=== PATIENT | female | born 1960 | race Caucasian/White ===

== ENCOUNTER 2016-11-14 15:44 | Emergency (ER) | payer OTHER ==
[~2016-11-14] VITALS: Ht 165.1 cm; Wt 92.1 kg
[~2016-11-14 15:44] MED LIST: ALPR1TAB3 PO; CYM60 PO; FLNIN NAE; LEVAAER2 INH; OMEP40CA PO; OXYC1CAP5 PO; QUET1TAB37 PO; TRAZ100T29 PO
[2016-11-14 15:53] VITALS: TEMP 36.7; Ht 165.1 cm; Wt 92.1 kg
[2016-11-14] MEDS ORDERED: PROCHLORPERAZINE 5 MG/ML 2 ML VIAL IM STA (16:06)
[2016-11-14] MEDS ORDERED: DiphenhydrAMINE HCL 50 MG/ML VIAL IM STA (16:06)
[2016-11-14] MEDS ORDERED: KETOROLAC TROMETHAMINE 60 MG/2 ML VIAL IM STA (16:06)
[2016-11-14 16:51] LABS: MANUAL MICROSCOPIC REQUIRED? YES; REVIEW REQ? NO; SULFASALICYLIC ACID NEG (NEG); URINE APPEARANCE SLIGHTLY CLOUDY (CLEAR); URINE COLOR ORANGE; URINE SPECIFIC GRAVITY 1.017 (1.000-1.030)
[2016-11-14] MEDS ORDERED: HYDROmorphone INJ 1 MG/ML SYR IM STA (16:59)
[2016-11-14 17:03] LABS: URINE BACTERIA 1+ (NEG); URINE RBC 0-4 /hpf (0-4)
[2016-11-14 17:04] LABS: ZZUR CULT IF INDIC CLEAN CATCH YES
--- NOTE | 2016-11-14 17:05 | EMERGENCY ROOM VISIT NOTE ---
History First contact with patient: 15:56 Chief Complaint: HEADACHE Stated Complaint: HEADACHE,UTI History of Present Illness The patient is a 56 year old female who presents to the Emergency Room with complaints of a migraine headache and urinary symptoms. The patient states that she has had a migraine headache for the past 5 days. She does have a history of migraines and states this feels typical for her. She reports photosensitivity, nausea and vomiting. She states that the only thing that makes this headache different is that it has not gone away yet. She rates her discomfort a 9/10. She has taken Maxalt and oxycodone for pain. She follows with Dr. Olea locally. She denies any numbness, weakness, blurred vision, slurred speech or confusion. The patient also reports that she has had increased frequency of urination over the past few days. She feels like she is not fully emptying her bladder. She reports a feeling of fullness in her lower abdomen. She is taking Azo at home for her symptoms. She denies any fevers/ chills or back pain. Review of Systems A complete 10 point review of systems was reviewed with the patient with pertinent positives and negatives as per history of present illness. All else were negative. Past Medical/Surgical History Medical Problems: (1) Depression (2) Gallstones (3) Hiatal hernia (4) Migraines Social History Smoking Status: Never Smoker Alcohol Use: none Drug Use: none Marital Status: Occupation Status: disabled Current/Historical Medications Scheduled Albuterol Hfa (Ventolin Hfa), 1-2 PUFFS INH UD Alprazolam (Xanax), 1 MG PO TID Ciprofloxacin Hcl (Cipro), 500 MG PO BID Duloxetine HCl (Duloxetine HCl), 60 MG PO DAILY Duloxetine HCl (Duloxetine HCl), 30 MG PO DAILY Fluticasone Propionate (Fluticasone Propionate), 2 SPRAYS SHIV DAILY Montelukast Sod (Montelukast Sodium), 1 TAB PO DAILY Quetiapine Fumarate (Seroquel), 900 MG PO HS Ranitidine HCl (Ranitidine HCl), 150 MG PO BID Rizatriptan Benzoate (Rizatriptan Benzoate), 1 TAB PO UD Trazodone Hcl (Trazodone), 100 MG PO HS Scheduled PRN Oxycodone Hcl (Oxycodone Hcl), 1-2 TABS PO Q8 PRN for Pain Allergies Coded Allergies: Cefaclor (Verified Allergy, Mild, 11/14/16) Cephalosporins (Verified Allergy, Mild, 11/14/16) Sulfa Drugs (Verified Allergy, Unknown, RASH, 11/14/16) Physical Exam Vital Signs Date Time Temp Pulse Resp B/P (MAP) Pulse Ox O2 Delivery O2 Flow Rate FiO2 11/14/16 18:55 89 18 152/85 93 11/14/16 17:27 82 16 130/87 94 11/14/16 15:53 36.7 92 16 118/82 95 Room Air Physical Exam VITALS: Vitals are noted on the nurse's note and reviewed by myself. Vital signs stable. GENERAL: This is a 56-year-old female, in no acute distress, nondiaphoretic, well-developed well-nourished. EARS: External auditory canals clear, tympanic membranes pearly pruett without erythema or effusion bilaterally. EYES: Pupils equal round and reactive to light and accommodation. Conjunctivae without injection, sclerae without icterus. Extraocular movements intact. MOUTH: Mucous membranes moist. NECK: Supple without nuchal rigidity. No lymphadenopathy. No meningismus. HEART: Regular rate and rhythm without murmurs gallops or rubs. LUNGS: Clear to auscultation bilaterally without wheezes, rales or rhonchi. ABDOMEN: Positive bowel sounds x 4. Soft, no tenderness to palpation. MUSCULOSKELETAL: No CVA tenderness. Strength 5/5 in all extremities. NEURO: Patient was alert and oriented to person place and time. Normal sensation to light and sharp touch. No focal neurological deficits. Medical Decision & Procedures Laboratory Results Test 11/14/16 16:25 Urine Color ORANGE Urine Appearance SLIGHTLY CLOUDY (CLEAR) Urine pH (4.5-7.5) Urine Specific [place] 1.017 (1.000-1.030) Urine Protein (NEG) Urine Glucose (UA) (NEG) Urine Ketones (NEG) Urine Occult Blood (NEG) Urine Nitrite (NEG) Urine Bilirubin (NEG) Urine Urobilinogen (NEG) Urine Leukocyte Esterase (NEG) Urine RBC 0-4 /hpf (0-4) Urine WBC 10-30 /hpf (0-5) Urine Epithelial Cells >30 /lpf (0-5) Urine Renal Cells 5-10 /lpf (FEW) Urine Bacteria 1+ (NEG) Medications Administered Medications (Trade) Dose Ordered Sig/Amilcar Route Start Time Stop Time Status Last Admin Dose Admin Ketorolac Tromethamine (Toradol Inj) 60 mg NOW STAT IM 11/14/16 16:06 11/14/16 16:09 DC 11/14/16 16:29 60 MG Prochlorperazine Edisylate (Compazine Inj) 10 mg NOW STAT IM 11/14/16 16:06 11/14/16 16:09 DC 11/14/16 16:28 10 MG Diphenhydramine HCl (Benadryl Inj) 25 mg NOW STAT IM 11/14/16 16:06 11/14/16 16:09 DC 11/14/16 16:27 25 MG Hydromorphone HCl (Dilaudid Inj) 1 mg NOW STAT IM 11/14/16 16:59 11/14/16 17:01 DC 11/14/16 17:29 1 MG Ciprofloxacin (Cipro Tab) 500 mg NOW STAT PO 11/14/16 18:05 11/14/16 18:08 DC 11/14/16 18:53 500 MG Al Hydroxide/Mg Hydroxide (Maalox Susp) 30 ml STK-MED ONCE .ROUTE 11/14/16 18:13 11/14/16 18:14 DC 11/14/16 18:53 30 ML Lidocaine HCl (Viscous Lidocaine 2% Soln) 20 ml STK-MED ONCE .ROUTE 11/14/16 18:13 11/14/16 18:14 DC 11/14/16 18:53 20 ML ED Course The patient was evaluated as above. Patient was medicated with 60 mg Toradol IM, 10 mg Compazine IM and 25 mg Benadryl IM. Patient was reevaluated and reported some relief, but still had a headache which she rated a 6/10. One mg of Dilaudid was ordered. Patient was reevaluated and felt much better. She does report she is having some reflux. A GI cocktail was ordered. Discharge instructions were reviewed with the patient. The patient verbalized understanding of my assessment and treatment plan and was discharged home in good condition. Medical Decision The differential diagnosis includes UTI, pyelonephritis, acute intracranial bleed, meningitis, encephalitis, mass or mass effect, sinusitis, infection, tumor, headache, temporal arteritis and carbon monoxide exposure, and migraine. The patient is a 56-year-old female who presents today complaining of a migraine headache which is typical for her as well as symptoms of UTI. Headache resolved with the above treatment. Urinalysis was suggestive of infection versus contamination and will be sent for culture. The patient will be placed on antibiotic in the meantime. She was instructed to follow-up with her primary care provider regarding today's visit. Based on the patient's presentation and work up, I feel the patient is stable for outpatient treatment. The patient was educated to return to the emergency department for any worsening of their current condition or new/concerning symptoms. She will follow up with her PCP. Medication reconciliation: I attest that I have personally reviewed the patient 's current medication list. Blood Pressure Screening: Patient was found to have a slightly elevated blood pressure due to circumstances. I do not believe that the patient requires hypertension monitoring. Impression Primary Impression: Headache Additional Impression: Symptoms involving urinary system Departure Information Dispostion Home / Self-Care Condition GOOD Prescriptions Ciprofloxacin Hcl (CIPRO) 500 Mg Tab 500 MG PO BID for 5 Days, #10 TAB Prov: Ruma Rya .NINO 11/14/16 Referrals Nanette Ortiz D.O. (PCP) Patient Instructions My [facility] Additional Instructions You have been treated in the Emergency Department for a Urinary Tract Infection (UTI) and migraine. You were given medications in the emergency department which impairs your ability to drive. You have been prescribed Cipro to be taken twice daily for 5 days. This is an antibiotic. All antibiotics have the potential to cause diarrhea. Stop this medication and contact a medical provider if you were to develop any significant adverse side effects including: wheezing, shortness of breath, passing out, vomiting, or a diffuse rash. Always take antibiotics as directed and COMPLETE the ENTIRE course regardless of the improvement of your symptoms. Drink plenty of water and stay well hydrated. As with any trip to the Emergency Department, you should follow-up with your Primary Care Provider from today's visit. Return to the emergency department if your symptoms persist despite treatment plan outlined above or if the following symptoms occur: increased fevers, chills , low back pain, nausea/vomiting, or blood in your urine. Problem Qualifiers Primary Impression: Headache Headache type: unspecified Headache chronicity pattern: acute headache Intractability: not intractable Qualified Codes: R51 - Headache
[2016-11-14] MEDS ORDERED: RANI150T2 PO (17:25)
[2016-11-14] MEDS ORDERED: SNG10 PO (17:25)
[2016-11-14] MEDS ORDERED: RIZA1TAB11 PO (17:25)
[2016-11-14] MEDS ORDERED: VNTHFA/IN INH (17:25)
[2016-11-14] MEDS ORDERED: FLNIN/ NAE (17:25)
[2016-11-14] MEDS ORDERED: CYM30 PO (17:25)
[2016-11-14] MEDS ORDERED: CYM60 PO (17:25)
[2016-11-14] MEDS ORDERED: CIPROFLOXACIN 500 MG TAB PO STA (18:05)
[2016-11-14] MEDS ORDERED: GI COCKTAIL PO STA (18:05)
[2016-11-14] MEDS ORDERED: CIPR-255 PO (18:10)
[2016-11-14] MEDS ORDERED: ALUMINUM/MAGNESIUM SUSP 30 ML UDC ONE (18:13)
[2016-11-14] MEDS ORDERED: LIDOCAINE HCL 2% VISC SOLN 20 ML UDC ONE (18:13)
[2016-11-14 18:55] VITALS: BP 152/85; PULSE 89; O2SAT 93
--- NOTE | 2016-11-14 19:20 | Pharmacy Progress Note ---
ED Pharmacist Progress Note Date of Service: Nov 14, 2016. Laura called from [facility] to alert us that the patient is taking Duloxetine and there is a significant interaction with the Cipro that was prescribed. I asked the pharmacist is Levofloxacin would be a reasonable alternative w/o risk of interaction. She stated this would be safer. I confirmed this as well. I discussed this with Ruma who agreed to the change. I called the Rx for Levofloxacin 500mg daily x 5 days to [facility] ([phone])
[2017-01-27] MEDS ORDERED: VNTHFA/IN INH (08:27)
[2017-01-27] MEDS ORDERED: PROM25TA9 PO (08:27)
[2017-01-27] MEDS ORDERED: BND25 PO (08:27)
== END 2016-11-14 18:55 | disposition home or self-care (01) ==
LOC: C.EDB 15:44
DX: R51 Headache (principal); R39.9 Unspecified symptoms and signs involving the genitourinary system; F32.9 Major depressive disorder, single episode, unspecified

== ENCOUNTER 2024-12-30 06:05 | Inpatient (IN) ==
[2024-12-30 06:54] LABS: Hematocrit (blood only) 35.4 % (37.0-47.0); Hemoglobin 11.4 g/dl (12.0-16.0); Immature Granulocytes # (auto) 0.03 K/uL (0.01-0.20); Immature Granulocytes % (auto) 0.3 %; Mean Corpuscular Hemoglobin 28.8 pg (25.0-34.0); Mean Corpuscular Volume 89.4 fL (80.0-100.0); Platelet Count 199 K/uL (130-400); RDW Standard Deviation 48.5 fL (36.4-46.3); Red Blood Count 3.96 M/uL (4.20-5.40); White Blood Count 9.96 K/ul (4.8-10.8)
--- NOTE | 2024-12-30 07:00 | Emergency Department Note ---
Impression & Plan AMS (altered mental status), Abnormal chest x-ray, Pneumonia ED Provider Note NAME: BURAK GONZALEZ AGE: 64 SEX: F : 1960 ARRIVES VIA: Ambulance INFORMANT: Patient, ED PROVIDER(S): Yanni Lockwood MD CHIEF COMPLAINT: Confusion HPI: This is a 64-year-old female presenting for confusion. Patient was reported found by the side of the road next to her truck. There was 2 dogs inside the vehicle. Patient was found facedown. Patient was mumbling and difficult to answer questions. Patient currently answers questions with I do not know ". She is not unsure what happened. She does state she has some pain to her knees. Otherwise she reports headache. She is not sure how long this has been going on. ROS: Unable to obtain PHYSICAL EXAMINATION: General: resting comfortably in no acute distress Head: Normocephalic and atraumatic Eyes: Normal inspection, extraocular muscles intact Ear, nose, throat: Normal external exam Neck: Normal range of motion Respiratory: lungs clear to auscultation bilaterally Cardiovascular: Regular rate/rhythm, no murmur GI: soft, nontender, no guarding or rebound Extremities: moves all extremities, bilateral knee abrasions Neuro: Awake, alert, not oriented, moves all extremities and follows commands, no facial droop or motor drift Skin: Warm, dry, and intact MEDICAL DECISION MAKING: This is a 64-year-old female presenting for confusion. No clear strokelike process with a nonfocal neurologic exam at this time. She does appear significantly altered at this time. Will do basic blood work, urinalysis, UDS, ingestion labs, chest x-ray and head CT. - Labs reviewed showing no leukocytosis. Hemoglobin 11.4. VBG is 7.35/61. Slight changes in electrolytes, otherwise no significant anion gap. Lactic acid still elevated above 2. Urinalysis negative for UTI. Urinalysis positive for opiates and MDMA. -CT head without significant process -Chest x-ray does not reveal signs of consolidation as well as congestion. -Will treat as pneumonia empirically - Family to state the patient is on multiple different psychiatric medication as his bipolar. Will ask them to get medication bottles to ensure no sign of overdose -Will get the patient at this time to hospital service. Discussed with Margarette nation NP for [facility] Differential diagnosis: Stroke, intoxication, alcohol use, metabolic encephalopathy, UTI, sepsis, intracranial hemorrhage Independent History obtained from: Son, daughter Diagnostics interpreted by me: ECG: ECG independently interpreted by me with normal sinus rhythm, rate of 93, normal axis, normal [place], normal QRS, normal QTc, no ST segment elevations consistent with STEMI criteria Cardiac Monitoring: An order was placed for continuous cardiac monitoring. The monitor shows a rate of 88 with sinus rhythm. Past Med/Surg History Problem List (Updated 12/30/24 @ 14:31 by Yanni Lockwood MD) Anemia Abnormal chest x-ray (Acute) AMS (altered mental status) (Acute) Headache (Acute) Chronic abdominal pain (Acute) Hiatal hernia (Chronic) Migraines (Chronic) Depression (Chronic) Gallstones (Chronic) Pneumonia (Acute) Symptoms involving urinary system (Acute) Surgical History No significant past surgical history Social History Smoking Status: Unknown if ever smoked Hx Alcohol Use: No Hx Substance Use: No Preferred Language: [place] [employer] Required: No Current Living Situation: Alone Feels Safe at Home: Yes Safety Concerns: Feels Safe At This Time Assistive Devices: Walker Allergies Allergies Allergy/AdvReac Type Severity Reaction Status Date / Time cefaclor Allergy Mild Verified 12/22/19 14:47 Cephalosporins Allergy Mild Verified 12/22/19 14:47 Sulfa (Sulfonamide Allergy Unknown RASH Verified 12/22/19 14:47 Antibiotics) Home Meds Home Medications Medication Instructions Recorded Confirmed alprazolam 1 mg tablet 1 mg PO BID PRN Anxiety 12/22/19 12/30/24 fluticasone furoate 200 1 inh inhalation QAM 12/22/19 12/30/24 mcg-vilanterol 25 mcg/dose inhalation powder (Breo Ellipta) fluticasone propionate 50 1 spray intranasal DAILY PRN 12/22/19 12/30/24 mcg/actuation nasal Congestion spray,suspension hydroxyzine HCl 50 mg tablet 50 mg PO BID PRN Itching 12/22/19 12/30/24 oxycodone 5 mg tablet 5 mg PO Q4H PRN Pain 12/22/19 12/30/24 pantoprazole 40 mg tablet,delayed 40 mg PO QAM 12/22/19 12/30/24 release sucralfate 1 gram tablet 1 g PO QID 12/22/19 12/30/24 trazodone 100 mg tablet 100 mg PO HS 12/22/19 12/30/24 paroxetine HCl 20 mg tablet 20 mg PO DAILY 12/30/24 12/30/24 quetiapine 300 mg tablet 600 mg PO HS 12/30/24 12/30/24 rimegepant 75 mg disintegrating 75 mg PO .Q OTHER DAY 12/30/24 12/30/24 tablet (Nurtec ODT) Results & Data (ED) Vital Signs Vital Signs - 24 hr 12/30/24 06:09 12/30/24 06:14 12/30/24 06:37 Temperature 35 C L Temperature Source Rectal Pulse Rate 90 91 H Pulse Rate [Apical] Respiratory Rate 20 Respiratory Effort / Characteristics Non-Labored Spontaneous Respiratory Depth Normal Respiratory Pattern Regular Blood Pressure 133/81 Blood Pressure [Left Arm] Blood Pressure Mean 98 Blood Pressure Mean [Left Arm] Blood Pressure Position Lying Pulse Oximetry 96 94 Oxygen Delivery Method Room Air Room Air Sepsis Recent Fever Within 48 Hours No Sepsis New/Unexplained Change in Mental Status N/A Sepsis Action Taken by Nursing No Action Required 12/30/24 06:42 12/30/24 07:39 12/30/24 09:00 Temperature 35.4 C L 35.9 C L Temperature Source Byrd Cath ( Temp Sensing) Byrd Cath ( Temp Sensing) Pulse Rate Pulse Rate [Apical] 90 89 95 H Respiratory Rate 19 18 18 Respiratory Effort / Characteristics Non-Labored Spontaneous Non-Labored Spontaneous Respiratory Depth Normal Normal Respiratory Pattern Regular Regular Blood Pressure Blood Pressure [Left Arm] 145/91 H 122/73 Blood Pressure Mean Blood Pressure Mean [Left Arm] 109 89 Blood Pressure Position Pulse Oximetry 95 96 98 Oxygen Delivery Method Room Air Room Air Room Air Sepsis Recent Fever Within 48 Hours Sepsis New/Unexplained Change in Mental Status Sepsis Action Taken by Nursing 12/30/24 10:00 Temperature 36.3 C L Temperature Source Byrd Cath ( Temp Sensing) Pulse Rate Pulse Rate [Apical] 85 Respiratory Rate 18 Respiratory Effort / Characteristics Non-Labored Spontaneous Respiratory Depth Normal Respiratory Pattern Regular Blood Pressure Blood Pressure [Left Arm] 116/76 Blood Pressure Mean Blood Pressure Mean [Left Arm] 89 Blood Pressure Position Pulse Oximetry 97 Oxygen Delivery Method Room Air Sepsis Recent Fever Within 48 Hours Sepsis New/Unexplained Change in Mental Status Sepsis Action Taken by Nursing Laboratory Data 12/30/24 06:29 12/30/24 06:29 Lab Results 12/30/24 12/30/24 12/30/24 Range/Units 06:29 06:37 06:43 WBC 9.96 (4.8-10.8) K/ul RBC 3.96 L (4.20-5.40) M/uL Hgb 11.4 L (12.0-16.0) g/dl POC Hgb 12.9 (12.0-16.0) g/dl Hct 35.4 L (37.0-47.0) % POC Hct 38 (37-47) % MCV 89.4 (80.0-100.0) fL MCH 28.8 (25.0-34.0) pg MCHC 32.2 (32.0-36.0) g/dL RDW Std Deviation 48.5 H (36.4-46.3) fL RDW Coeff of Annalee 14.8 H (11.5-14.5) % Plt Count 199 (130-400) K/uL MPV 10.6 (9.4-12.4) fL Immature Gran % (Auto) 0.3 % Neut % (Auto) 87.3 % Lymph % (Auto) 8.3 % [place] % (Auto) 3.8 % Eos % (Auto) 0.1 % Baso % (Auto) 0.2 % Neut # (Auto) 8.69 H (1.40-6.50) K/uL Lymph # (Auto) 0.83 L (1.20-3.40) K/uL [place] # (Auto) 0.38 (0.11-0.59) K/uL Eos # (Auto) 0.01 (0.00-0.50) K/uL Baso # (Auto) 0.02 (0.00-0.20) K/uL Immature Gran # (Auto) 0.03 (0.01-0.20) K/uL VBG pH (7.36-7.41) VBG pCO2 (38-50) mmHg VBG pO2 mmHg VBG HCO3 mmol/L VBG O2 Saturation % VBG Base Excess mEq/L POC Sodium 133 L (135-144) mmol/L Sodium 134 L (136-145) mmol/L POC Potassium 3.2 L (3.3-5.0) mmol/L Potassium 3.2 L (3.5-5.1) mmol/L POC Chloride 94 L (101-112) mmol/L Chloride 95 L (98-107) mmol/L Carbon Dioxide 30 (21-32) mmol/L POC Total CO2 28 (24-31) mmol/L Anion Gap 9 (3-11) POC Anion Gap 16.0 (16-25) mmol/L POC BUN 6 L (7-18) mg/dl BUN 8 (6-23) mg/dl Creatinine 1.10 (0.6-1.2) mg/dl POC Creatinine 1.1 (0.6-1.3) mg/dl Est Cr Clr Drug Dosing Not Reportable eGFR 56.46 BUN/Creatinine Ratio 7.3 L (10-20) Glucose 147 H (70-99(Fasting)) mg/dl POC Glucose (other) 149 H (70-99) mg/dl Lactate (0.4-2.0) mmol/L Calcium 9.2 (8.6-10.3) mg/dl POC Ioniz Calcium Bart 1.18 (1.12-1.32) mmol/l Total Bilirubin 0.4 (0.2-1.0) mg/dl AST 21 (13-39) U/L ALT 21 (7-52) U/L Alkaline Phosphatase 85 (34-104) U/L Total Protein 6.7 (6.0-8.3) gm/dl Albumin 4.1 (3.4-5.0) gm/dl Globulin 2.6 (2.5-4.0) gm/dl Albumin/Globulin Ratio 1.6 (0.9-2) TSH 4.834 H (0.300-4.500) uIu/ml Free T4 0.59 L (0.61-1.60) ng/dl Urine Color Yellow Urine Appearance Clear (Clear) Urine pH 5.5 (4.5-7.5) Ur Specific [place] 1.016 (1.000-1.030) Urine Protein Trace H (Negative) Urine Glucose (UA) Negative (Negative) Urine Ketones Negative (Negative) Urine Blood Negative (Negative) Urine Nitrite Negative (Negative) Urine Bilirubin Negative (Negative) Urine Urobilinogen Negative (Negative) Ur Leukocyte Esterase Negative (Negative) Urine WBC (Auto) 0-5 (0-5) /hpf Urine RBC (Auto) 0-2 (0-2) /hpf U Hyaline Cast (Auto) 0-2 (0-2) /lpf U Epithel Cells (Auto) 0-2 (0-2) /hpf Urine Bacteria (Auto) None Seen (None Seen) Urine Mucus Present A (None Prsent) Urine Comment Salicylates < 3.0 L (3.0-30) mg/dl Urine Opiates Screen Pos H (Neg) Ur Methadone, Qual Neg (Neg) Urine Fentanyl Screen Neg (Neg) Acetaminophen < 3 L (10-30) ug/ml Urine Barbiturates Neg (Neg) Ur Phencyclidine (PCP) Neg (Neg) U Amphetamin/Meth Scrn Neg (Neg) MDMA (Ecstasy) Screen Pos H (Neg) U Benzodiazepines Scrn Neg (Neg) Ur Cocaine Metabolite Neg (Neg) U Marijuana (THC) Screen Neg (Neg) Ethyl Alcohol mg/dL (<10.0) mg/dl 12/30/24 12/30/24 Range/Units 07:12 09:00 WBC (4.8-10.8) K/ul RBC (4.20-5.40) M/uL Hgb (12.0-16.0) g/dl POC Hgb (12.0-16.0) g/dl Hct (37.0-47.0) % POC Hct (37-47) % MCV (80.0-100.0) fL MCH (25.0-34.0) pg MCHC (32.0-36.0) g/dL RDW Std Deviation (36.4-46.3) fL RDW Coeff of Annalee (11.5-14.5) % Plt Count (130-400) K/uL MPV (9.4-12.4) fL Immature Gran % (Auto) % Neut % (Auto) % Lymph % (Auto) % [place] % (Auto) % Eos % (Auto) % Baso % (Auto) % Neut # (Auto) (1.40-6.50) K/uL Lymph # (Auto) (1.20-3.40) K/uL [place] # (Auto) (0.11-0.59) K/uL Eos # (Auto) (0.00-0.50) K/uL Baso # (Auto) (0.00-0.20) K/uL Immature Gran # (Auto) (0.01-0.20) K/uL VBG pH 7.35 L (7.36-7.41) VBG pCO2 61 H (38-50) mmHg VBG pO2 30 mmHg VBG HCO3 34 mmol/L VBG O2 Saturation < 60.0 % VBG Base Excess 6.3 mEq/L POC Sodium (135-144) mmol/L Sodium (136-145) mmol/L POC Potassium (3.3-5.0) mmol/L Potassium (3.5-5.1) mmol/L POC Chloride (101-112) mmol/L Chloride (98-107) mmol/L Carbon Dioxide (21-32) mmol/L POC Total CO2 (24-31) mmol/L Anion Gap (3-11) POC Anion Gap (16-25) mmol/L POC BUN (7-18) mg/dl BUN (6-23) mg/dl Creatinine (0.6-1.2) mg/dl POC Creatinine (0.6-1.3) mg/dl Est Cr Clr Drug Dosing eGFR BUN/Creatinine Ratio (10-20) Glucose (70-99(Fasting)) mg/dl POC Glucose (other) (70-99) mg/dl Lactate 2.5 H* 2.1 H* (0.4-2.0) mmol/L Calcium (8.6-10.3) mg/dl POC Ioniz Calcium Bart (1.12-1.32) mmol/l Total Bilirubin (0.2-1.0) mg/dl AST (13-39) U/L ALT (7-52) U/L Alkaline Phosphatase (34-104) U/L Total Protein (6.0-8.3) gm/dl Albumin (3.4-5.0) gm/dl Globulin (2.5-4.0) gm/dl Albumin/Globulin Ratio (0.9-2) TSH (0.300-4.500) uIu/ml Free T4 (0.61-1.60) ng/dl Urine Color Urine Appearance (Clear) Urine pH (4.5-7.5) Ur Specific [place] (1.000-1.030) Urine Protein (Negative) Urine Glucose (UA) (Negative) Urine Ketones (Negative) Urine Blood (Negative) Urine Nitrite (Negative) Urine Bilirubin (Negative) Urine Urobilinogen (Negative) Ur Leukocyte Esterase (Negative) Urine WBC (Auto) (0-5) /hpf Urine RBC (Auto) (0-2) /hpf U Hyaline Cast (Auto) (0-2) /lpf U Epithel Cells (Auto) (0-2) /hpf Urine Bacteria (Auto) (None Seen) Urine Mucus (None Prsent) Urine Comment Salicylates (3.0-30) mg/dl Urine Opiates Screen (Neg) Ur Methadone, Qual (Neg) Urine Fentanyl Screen (Neg) Acetaminophen (10-30) ug/ml Urine Barbiturates (Neg) Ur Phencyclidine (PCP) (Neg) U Amphetamin/Meth Scrn (Neg) MDMA (Ecstasy) Screen (Neg) U Benzodiazepines Scrn (Neg) Ur Cocaine Metabolite (Neg) U Marijuana (THC) Screen (Neg) Ethyl Alcohol mg/dL < 10.0 (<10.0) mg/dl Administered Medications Fluticasone/Vilanterol (Fluticasone/Vilanterol 200/25mcg 14 Puffs/Inhaler) 1 puffs INH QAM MARJAN Stop: 01/29/25 13:29 Last Admin: 12/30/24 14:21 Dose: 1 puffs Documented By: TLDamon Pantoprazole Sodium (Pantoprazole 40 Mg Tab) 40 mg PO QAM [facility] Stop: 01/29/25 13:29 Last Admin: 12/30/24 14:21 Dose: 40 mg Documented By: TLM Paroxetine HCl (Paroxetine Hcl 20 Mg Tab) 20 mg PO DAILY [facility] Stop: 01/29/25 13:29 Last Admin: 12/30/24 14:21 Dose: 20 mg Documented By: JOLLY Discontinued Medications Sodium Chloride (Nss) 1,000 mls @ 999 mls/hr IV .Q1H1M MARJAN Stop: 12/30/24 07:45 Last Infusion: 12/30/24 08:13 Dose: Infused Documented By: Admin: 12/30/24 07:12 Dose: 999 mls/hr Documented By: RADHA Levofloxacin/Dextrose (Levaquin/D5w) 750 mg in 150 mls @ 100 mls/hr IV NOW STA Stop: 12/30/24 09:58 Last Infusion: 12/30/24 10:46 Dose: Infused Documented By: Admin: 12/30/24 08:56 Dose: 100 mls/hr Documented By: RADHA Imaging Data Radiologist's Impression: Chest X-Ray 12/30/24 06:31 EXAM: XR chest 1V portable CLINICAL HISTORY: confusion TECHNIQUE: An X-ray image of the chest is obtained in AP projection. COMPARISON: No prior studies are available for comparison. FINDINGS: Pulmonary Parenchyma: Ill-defined parenchymal opacity noted involving left mid and lower zone- possibility of consolidation likely. Rest of both lungs shows diffuse prominent bronchovascular markings- possibility of congestion likely. Bilateral lisa appears prominent- predominantly on the right side. Heart and Mediastinum: Heart size and shape are normal. No mediastinal widening or masses. No hilar or mediastinal lymphadenopathy. Bony Thorax: Bony thorax appears intact without fractures or deformities. Soft Tissues: Soft tissues overlying the chest wall are unremarkable. IMPRESSION: Ill-defined parenchymal opacities noted involving left mid and lower zone- possibility of consolidation likely. Rest of both lungs shows diffuse prominent bronchovascular markings- possibility of congestion likely. Bilateral lisa appears prominent- predominantly on the right side. Electronically signed by Edu Nicohls 12-30-2024 07:[address] 12/30/24 06:31 EXAM: CT head/brain wo con CLINICAL HISTORY: AMS, headache, trauma vs bleed TECHNIQUE: Axial non-contrast CT scan of the brain was performed from the skull base to the high parietal region. One of the following dose reduction techniques were utilized for this exam: Automated exposure control, adjustment of the mA and/or kV according to patient size, use of iterative reconstruction. CTDI: 34.69 mGy, DLP: 625.80 mGy-cm. COMPARISON: None. FINDINGS: Brain Parenchyma: Normal attenuation of the cerebral hemispheres, cerebellum, and brainstem. No evidence of acute infarct, hemorrhage, or mass effect. No abnormal areas of hypo- or hyperattenuation. Ventricular System: Ventricles are normal in size and configuration. No evidence of hydrocephalus or ventricular enlargement. Subarachnoid Spaces: Normal sulci and cisterns. No evidence of subarachnoid hemorrhage or extra-axial fluid collections. Cerebellum and Brainstem: No masses, lesions, or areas of abnormal density. Orbits: Normal appearance of the globes, optic nerves, and extraocular muscles. No evidence of orbital masses or abnormal density. Sinuses: Clear paranasal sinuses. No evidence of sinusitis or mucosal thickening. Mastoid Air Cells: Clear mastoid air cells. No evidence of mastoiditis. Skull: Normal skull morphology. IMPRESSION: 1. No intra or extraaxial hematoma. 2. No fracture line identified. 3. Unremarkable CT of the head without contrast. Electronically signed by Haim Mac 12-30-2024 08:14 AM Discharge Plan Visit Data Chief Complaint: Altered Mental Status Stated Complaint: AMS ED Provider: Yanni Lockwood Discharge Problem: AMS (altered mental status), Abnormal chest x-ray, Pneumonia Patient Disposition: Admitted As Inpatient Condition: Fair Discharge Instructions Interventions: ED Discharge Assessment Last Done: 12/30/24 12:39
[2024-12-30] MEDS: SODIUM CHLORIDE 0.9% 1,000 ML IV SCH (07:12)
[2024-12-30 07:13] LABS: Alanine Aminotransferase 21 U/L (7-52); Albumin Globulin Ratio 1.6 (0.9-2); Alkaline Phosphatase 85 U/L (34-104); Anion Gap 9 (3-11); Bilirubin,Total 0.4 mg/dl (0.2-1.0); Blood Urea Nitrogen 8 mg/dl (6-23); Calcium 9.2 mg/dl (8.6-10.3); Carbon Dioxide 30 mmol/L (21-32); Chloride 95 mmol/L (98-107); Globulin 2.6 gm/dl (2.5-4.0); Glucose 147 mg/dl (70-99(Fasting)); Potassium 3.2 mmol/L (3.5-5.1); Sodium 134 mmol/L (136-145); Total Protein 6.7 gm/dl (6.0-8.3)
[2024-12-30 07:20] LABS: Base Excess VBG 6.3 mEq/L; HCO3 VBG 34 mmol/L; Oxygen Saturation VBG < 60.0 %; PCO2 VBG 61 mmHg (38-50); PO2 VBG 30 mmHg; pH VBG 7.35 (7.36-7.41)
[2024-12-30 07:27] LABS: Thyroid Stimulating Hormone 4.834 uIu/ml (0.300-4.500)
--- NOTE | 2024-12-30 07:53 | XRay Report ---
EXAM: XR chest 1V portable CLINICAL HISTORY: confusion TECHNIQUE: An X-ray image of the chest is obtained in AP projection. COMPARISON: No prior studies are available for comparison. FINDINGS: Pulmonary Parenchyma: Ill-defined parenchymal opacity noted involving left mid and lower zone- possibility of consolidation likely. Rest of both lungs shows diffuse prominent bronchovascular markings- possibility of congestion likely. Bilateral lisa appears prominent- predominantly on the right side. Heart and Mediastinum: Heart size and shape are normal. No mediastinal widening or masses. No hilar or mediastinal lymphadenopathy. Bony Thorax: Bony thorax appears intact without fractures or deformities. Soft Tissues: Soft tissues overlying the chest wall are unremarkable. IMPRESSION: Ill-defined parenchymal opacities noted involving left mid and lower zone- possibility of consolidation likely. Rest of both lungs shows diffuse prominent bronchovascular markings- possibility of congestion likely. Bilateral lisa appears prominent- predominantly on the right side. Electronically signed by Edu Nichols 12-30-2024 07:52 AM
[2024-12-30 07:59] LABS: Appearance Urine Clear (Clear); Bacteria Urine Automated None Seen (None Seen); Cast Urine Automated 0-2 /lpf (0-2); Epithelial Cell Urine Auto 0-2 /hpf (0-2); Glucose Urine UA Negative (Negative); RBC Urine Automated 0-2 /hpf (0-2); WBC Urine Automated 0-5 /hpf (0-5)
[2024-12-30 08:03] LABS: Acetaminophen < 3 ug/ml (10-30); Salicylate < 3.0 mg/dl (3.0-30)
--- NOTE | 2024-12-30 08:15 | CT Scan Report ---
EXAM: CT head/brain wo con CLINICAL HISTORY: AMS, headache, trauma vs bleed TECHNIQUE: Axial non-contrast CT scan of the brain was performed from the skull base to the high parietal region. One of the following dose reduction techniques were utilized for this exam: Automated exposure control, adjustment of the mA and/or kV according to patient size, use of iterative reconstruction. CTDI: 34.69 mGy, DLP: 625.80 mGy-cm. COMPARISON: None. FINDINGS: Brain Parenchyma: Normal attenuation of the cerebral hemispheres, cerebellum, and brainstem. No evidence of acute infarct, hemorrhage, or mass effect. No abnormal areas of hypo- or hyperattenuation. Ventricular System: Ventricles are normal in size and configuration. No evidence of hydrocephalus or ventricular enlargement. Subarachnoid Spaces: Normal sulci and cisterns. No evidence of subarachnoid hemorrhage or extra-axial fluid collections. Cerebellum and Brainstem: No masses, lesions, or areas of abnormal density. Orbits: Normal appearance of the globes, optic nerves, and extraocular muscles. No evidence of orbital masses or abnormal density. Sinuses: Clear paranasal sinuses. No evidence of sinusitis or mucosal thickening. Mastoid Air Cells: Clear mastoid air cells. No evidence of mastoiditis. Skull: Normal skull morphology. IMPRESSION: 1. No intra or extraaxial hematoma. 2. No fracture line identified. 3. Unremarkable CT of the head without contrast. Electronically signed by Haim Mac 12-30-2024 08:14 AM
[2024-12-30 09:00] LABS: Amphetamines+Metham, Urine Neg (Neg); MDMA (Ecstacy), Urine Pos (Neg); Marijuana, Urine Neg (Neg)
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
--- NOTE | 2024-12-30 11:27 | Electrocardiogram Report ---
Test Reason : Blood Pressure : */* mmHG Vent. Rate : 93 BPM Atrial Rate : 93 BPM P-R Int : 172 ms QRS Dur : 92 ms QT Int : 368 ms P-R-T Axes : 57 44 41 degrees QTcB Int : 457 ms Normal sinus rhythm Normal ECG When compared with ECG of 19-Nov-2013 13:10, No significant change was found Confirmed by Jonathan Pedroza ([id number]) on 12/30/2024 11:26:40 AM Referred By: REFERRED SELF Confirmed By: Jonathan Pedroza
[2024-12-30] MEDS ORDERED: ALUMINUM/MAGNESIUM SUSP 30 ML UDC PO PRN (13:30)
[2024-12-30] MEDS ORDERED: MAGNESIUM HYDROXIDE SUSP 30 ML UDC PO PRN (13:30)
[2024-12-30] MEDS: FLUTICASONE/VILANTEROL 200/25MCG 14 PUFFS/INHALER INH SCH (14:21)
[2024-12-30] MEDS: ACETAMINOPHEN 325 MG TAB PO PRN (19:19)
[2024-12-30] MEDS: HEPARIN SOD 5,000 UNIT/0.5 ML VIAL SQ SCH (20:25)
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
[2024-12-31 08:10] LABS: Hematocrit (blood only) 34.8 % (37.0-47.0); Hemoglobin 11.3 g/dl (12.0-16.0); Mean Corpuscular Hemoglobin 28.5 pg (25.0-34.0); Mean Corpuscular Volume 87.7 fL (80.0-100.0); Platelet Count 201 K/uL (130-400); RDW Standard Deviation 48.2 fL (36.4-46.3); Red Blood Count 3.97 M/uL (4.20-5.40); White Blood Count 5.42 K/ul (4.8-10.8)
[2024-12-31 08:50] LABS: Anion Gap 6.0 (3-11); Blood Urea Nitrogen 5.0 mg/dl (6-23); Calcium 9.0 mg/dl (8.6-10.3); Carbon Dioxide 29.0 mmol/L (21-32); Chloride 104.0 mmol/L (98-107); Creatinine Clr Calc Pharmacy 58.2 ml/min; Glucose 95.0 mg/dl (70-99(Fasting)); Magnesium 2.0 mg/dl (1.7-2.4); Potassium 3.6 mmol/L (3.5-5.1); Sodium 139.0 mmol/L (136-145)
[2024-12-31] MEDS: OPTIRAY 320 125ml IV ONE (12:37)
--- NOTE | 2024-12-31 13:46 | CT Scan Report ---
Technique: Axial computed tomography images were obtained of the brain before and after the administration of intravenous contrast according to the CT angiogram protocol Findings: There is no sign of intracranial hemorrhage. There is normal pruett-white matter differentiation with no sign of acute or old infarction. No midline shift or other form of herniation is identified. There is no hydrocephalus. No definite mass lesion is seen. The visualized portions of the orbits and paranasal sinuses appear unremarkable. The mastoid air cells appear clear No definite stenosis or aneurysm is seen of the anterior, middle, or posterior cerebral artery circulations. The visualized vertebral arteries and the basilar artery appear unremarkable Impression: No definite stenosis or aneurysm of the intracranial arteries Electronically signed by Du Marrero 12-31-2024 13:43 PM
--- NOTE | 2024-12-31 13:46 | CT Scan Report ---
Technique: Axial computed tomography images were obtained of the neck after the administration of intravenous contrast according to the CT angiogram protocol Findings: No stenosis is seen of the common carotid arteries bilaterally. The carotid bulbs appear normal. The remainder of the internal carotid arteries appear patent bilaterally. No stenosis of the external carotid arteries is seen The vertebral arteries are patent bilaterally with no significant stenosis seen. The visualized thoracic aorta appears unremarkable Impression: No definite stenosis of the neck arteries Electronically signed by Du Marrero 12-31-2024 13:44 PM
[2024-12-31] MEDS: GADOBUTROL 65ML VIAL IV ONE (17:32)
--- NOTE | 2024-12-31 17:50 | Magnetic Resonance Report ---
Exam: MRI scan of the brain without then with contrast. Reason for exam: Altered mental status. Previous studies: Unenhanced head CT 12/31/2024 FINDINGS: No evidence of mass or enlargement of the pituitary gland. No evidence of restricted diffusion to indicate acute ischemic infarct. Mild diffuse atrophy noted similar to the CT study. No midline shift, significant ventricular enlargement or extra-axial blood/fluid collection is noted. Following intravenous gadolinium normal vascular enhancement patterns are identified. No specific focus of abnormal enhancement is seen at this time. No specific abnormal signal seen in the mastoid visualized paranasal sinuses. IMPRESSION: 1. Negative for acute intracranial process. No evidence of acute ischemia, mass or hemorrhage. 2. Mild diffuse atrophy. Electronically signed by Josue Tucker 12-31-2024 5:49 PM
[2025-01-01 07:09] LABS: Hematocrit (blood only) 36.9 % (37.0-47.0); Hemoglobin 12.0 g/dl (12.0-16.0); Mean Corpuscular Hemoglobin 28.9 pg (25.0-34.0); Mean Corpuscular Volume 88.9 fL (80.0-100.0); Platelet Count 209 K/uL (130-400); RDW Standard Deviation 50.2 fL (36.4-46.3); Red Blood Count 4.15 M/uL (4.20-5.40); White Blood Count 6.20 K/ul (4.8-10.8)
[2025-01-01 07:51] LABS: Alanine Aminotransferase 18.0 U/L (7-52); Albumin Globulin Ratio 1.4 (0.9-2); Alkaline Phosphatase 82.0 U/L (34-104); Anion Gap 6.0 (3-11); Bilirubin,Total 0.4 mg/dl (0.2-1.0); Blood Urea Nitrogen 5.0 mg/dl (6-23); Calcium 9.4 mg/dl (8.6-10.3); Carbon Dioxide 30.0 mmol/L (21-32); Chloride 103.0 mmol/L (98-107); Creatinine Clr Calc Pharmacy 63.6 ml/min; Globulin 2.8 gm/dl (2.5-4.0); Glucose 118.0 mg/dl (70-99(Fasting)); Magnesium 1.9 mg/dl (1.7-2.4); Potassium 3.5 mmol/L (3.5-5.1); Sodium 139.0 mmol/L (136-145); Total Protein 6.6 gm/dl (6.0-8.3)
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
[2025-01-01] MEDS: ONDANSETRON INJ 2 MG/ML 2 ML VIAL IV PRN (08:47)
[2025-01-01] MEDS: METOCLOPRAMIDE HCL 5 MG TABLET PO SCH (13:44)
[2025-01-01] MEDS ORDERED: Nursing to Pharmacy Communication SCH (14:15)
[2025-01-01] MEDS ORDERED: POLYETHYLENE (MIRALAX) 17 GM PACK PO PRN (15:05)
[2025-01-01] MEDS: SODIUM CHLORIDE 0.9% 1,000 ML IV SCH (16:19)
[2025-01-02 07:18] LABS: Hematocrit (blood only) 36.3 % (37.0-47.0); Hemoglobin 12.2 g/dl (12.0-16.0); Mean Corpuscular Hemoglobin 29.5 pg (25.0-34.0); Mean Corpuscular Volume 87.7 fL (80.0-100.0); Platelet Count 213 K/uL (130-400); RDW Standard Deviation 48.5 fL (36.4-46.3); Red Blood Count 4.14 M/uL (4.20-5.40); White Blood Count 5.53 K/ul (4.8-10.8)
[2025-01-02 07:47] LABS: Alanine Aminotransferase 19.0 U/L (7-52); Albumin Globulin Ratio 1.4 (0.9-2); Alkaline Phosphatase 74.0 U/L (34-104); Anion Gap 5.0 (3-11); Bilirubin,Total 0.5 mg/dl (0.2-1.0); Blood Urea Nitrogen 6.0 mg/dl (6-23); Calcium 8.9 mg/dl (8.6-10.3); Carbon Dioxide 28.0 mmol/L (21-32); Chloride 105.0 mmol/L (98-107); Creatinine Clr Calc Pharmacy 64.6 ml/min; Globulin 2.6 gm/dl (2.5-4.0); Glucose 116.0 mg/dl (70-99(Fasting)); Potassium 3.7 mmol/L (3.5-5.1); Sodium 138.0 mmol/L (136-145); Total Protein 6.2 gm/dl (6.0-8.3)
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
[2025-01-02] MEDS: SUCRALFATE 1 GM TAB PO SCH (13:57)
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
[2025-01-02 16:15] VITALS: BP 141/68; PULSE 81; RESP 20; TEMP 98.1; O2SAT 91
[2025-01-03 14:18] LABS: Hydrocodone Urine NEGATIVE ng/mL (<50); Hydromor Urine NEGATIVE ng/mL (<50); MDA negative; MDEA negative; MDMA (Ecstasy) Urine, Confirm negative; Noroxycodone Urine >10000 ng/mL (<50); Oxymorph Urine 1580 ng/mL (<50)
== END 2025-01-02 17:45 | disposition home or self-care (01) | DRG 947 ==
LOC: 2N 06:05 → ED 06:05 → SUATTDRO 10:50 → 2N 12:39